=== PATIENT | male | born 1965 | race Caucasian/White ===

== ENCOUNTER 2022-12-29 08:30 | Outpatient (CLI) | payer OTHER, SELFPAY | END 2022-12-29 08:31 | disposition home or self-care (01) | PROVIDERS: PCP Family Medicine; Visit Provider Family Medicine | DX: Z00.00 Encounter for general adult medical examination without abnormal findings (principal); E78.5 Hyperlipidemia, unspecified; F41.9 Anxiety disorder, unspecified; Z12.5 Encounter for screening for malignant neoplasm of prostate; Z13.0 Encounter for screening for diseases of the blood and blood-forming organs and certain disorders involving the immune mechanism; Z13.1 Encounter for screening for diabetes mellitus | CPT/HCPCS: 80048; 80061; 84153 ==

== ENCOUNTER 2023-09-21 06:30 | Outpatient (CLI) | payer OTHER, SELFPAY ==
--- NOTE | 2023-09-21 07:47 | W.ANESCHARGE ---
Anesthesia Charges Start Date/Time Anesthesia Start Date: 09/21/23 Anesthesia Start Time: 07:16 Stop Date/Time Anesthesia Stop Date: 09/21/23 Anesthesia Stop Time: 07:43
--- NOTE | 2023-09-21 08:29 | W.ANESCHARGE ---
Anesthesia Charges Start Date/Time Anesthesia Start Date: 09/21/23 Anesthesia Start Time: 07:16 Stop Date/Time Anesthesia Stop Date: 09/21/23 Anesthesia Stop Time: 07:43
== END 2023-09-21 06:31 | disposition home or self-care (01) ==
PROVIDERS: PCP Family Medicine; Visit Provider Internal Medicine
DX: K63.5 Polyp of colon (principal); Z86.010 Personal history of colon polyps
CPT/HCPCS: 00811; 45380; 88305; J2704

== ENCOUNTER 2024-05-12 10:03 | Outpatient (CLI) | payer OTHER, SELFPAY | END 2024-05-12 10:04 | disposition home or self-care (01) | PROVIDERS: PCP Family Medicine; Visit Provider Family Medicine | DX: Z00.00 Encounter for general adult medical examination without abnormal findings (principal); E78.5 Hyperlipidemia, unspecified; F41.9 Anxiety disorder, unspecified; Z13.1 Encounter for screening for diabetes mellitus; Z12.5 Encounter for screening for malignant neoplasm of prostate | CPT/HCPCS: 80048; 80061; G0103 ==

== ENCOUNTER 2024-09-02 12:48 | Outpatient (CLI) | payer OTHER, SELFPAY ==
--- NOTE | 2024-09-02 13:00 | MR_ITS ---
[address] [address] Phone:?[phone] Fax:?[phone] Referring Physician Information: Jerome Richards M.D. [id number] [facility] [address] Phone:?[phone] Fax:?[phone] Patient:Vasile Adkins D.O.B:?1965 Sex:?Male Phone:?[phone] [facility] MRN:?[id number] Exam Date:?09/02/2024 EXAM: MRI of the RIGHT KNEE, without contrast CLINICAL INFORMATION: Male, 59 years old, with knee pain INDICATION: Evaluate for lateral meniscus tear. PRIOR SURGERY: History of ACL reconstruction. PLAIN FILMS: Radiograph 08/27/2024. COMPARISONS: No prior MRIs available. TECHNICAL INFORMATION: Using a 1.5T MR scanner and a localizing surface coil: sagittals: PD, STIR coronals: PD, STIR axials: PD, STIR SEDATION: None CONTRAST: None FINDINGS: Extensive appearance of susceptibility artifact in the distal femur significantly obscures evaluation of adjacent structures. Knee joint: Effusion: Small right knee effusion. Popliteal cyst: Fluid along the medial head of the gastrocnemius is consistent with popliteal cyst rupture. Loose bodies: None. Subcutaneous and extra-articular soft tissues: Unremarkable. Ligaments: ACL: Postoperative changes of ACL reconstruction in the proximal tibia. The intercondylar notch is not well visualized due to susceptibility artifact, therefore the graft cannot be assessed. PCL: The intercondylar notch is obscured, therefore the PCL cannot be assessed. MCL: Intact MCL superficial and deep layers, without injury. LCL: Intact LCL, without injury. Posterolateral corner: No visualized abnormality in the posterolateral corner, however the proximal ligament attachments are obscured. Posteromedial corner: No visualized abnormality in the posteromedial corner. Extensor mechanism: Patellar tendon: Intact, without tendinopathy. Quadriceps tendon: Intact, without tendinopathy. Retinacula: Medial and lateral retinacula are intact. Fat pads: Unremarkable infrapatellar Hoffa's, quadriceps and prefemoral fat pads. Medial compartment: Medial meniscus: Highly attenuated appearance of the body segment of the medial meniscus suggests residua of incomplete partial meniscectomy in this region. Additionally, there is attenuated appearance of the anterior and posterior horn also suggesting residua of prior surgical intervention. No displaced medial meniscal flap. Medial femoral condyle and tibial plateau: The peripheral and anterior medial femoral condyle and tibial plateau articular cartilage is intact, however the central and posterior cartilage is not well assessed due to susceptibility artifact. Lateral compartment: Lateral meniscus: The peripheral aspect of the lateral meniscus is intact, however the anterior root and posterior roots are not well assessed due to susceptibility artifact. Lateral femoral condyle and tibial plateau: The peripheral and anterior lateral femoral condyle and tibial plateau articular cartilage is intact, however the central and posterior cartilage is not well assessed due to susceptibility artifact. Patellofemoral joint: Patella: There is grade 3 chondral thinning along the medial patellar facet centrally. Lateral segment is not well assessed. Trochlea: Trochlear articular cartilage is not well assessed due to artifact. Proximal tibiofibular joint: Unremarkable, without evidence of ligament sprain injury, joint effusion or adjacent marrow edema. Bones: Extensive susceptibility artifact obscures the majority of the distal femur. No well-defined fracture. IMPRESSION: Extensive susceptibility artifact in the distal femur due to surgical hardware significantly obscures evaluation of adjacent in the distal femur central knee. Postoperative changes of ACL reconstruction proximal tibia. The graft cannot be assessed due to susceptibility artifact. Suspected postoperative changes of the medial meniscus, without well-defined recurrent tearing of the residual tissue. The peripheral lateral meniscus is intact, however the anterior posterior roots are not well assessed. Peripheral and anterior medial and lateral compartment articular cartilage is intact, however the central and posterior cartilage is obscured. Grade 3 chondral thinning of the medial patellar facet centrally. The lateral patellar facet and trochlea are not well assessed. Residua of popliteal cyst rupture with fluid along the medial head of the gastrocnemius. Small knee joint effusion. KME Electronically signed on 09/03/2024 1:43:00 PM by Cathy Castano M.D.
== END 2024-09-02 12:49 | disposition home or self-care (01) ==
LOC: MRI 12:49
PROVIDERS: PCP Family Medicine; Visit Provider Orthopaedic Surgery
DX: M25.561 Pain in right knee (principal); M23.41 Loose body in knee, right knee; M25.461 Effusion, right knee; S83.281A Other tear of lateral meniscus, current injury, right knee, initial encounter; Z98.890 Other specified postprocedural states
CPT/HCPCS: 73721